=== PATIENT | male | born 1965 | race African-American/Black ===

== ENCOUNTER 2018-07-17 17:35 | Emergency (ER) | payer SELFPAY ==
[~2018-07-17] VITALS: Ht 177.8 cm; Wt 85.0 kg
[~2018-07-17 17:35] MED LIST: DILANTIN; HYDR-519 PO; OMEP20CA10 PO; PHEN100C4 PO; SUCR1TAB30 PO
[2018-07-17] MEDS ORDERED: KETOROLAC 60MG/2ML VIAL IM ONE (19:00)
[2018-07-17 22:53] VITALS: BP 132/78
== END 2018-07-17 23:00 | disposition home or self-care (01) ==
LOC: ER 17:35
DX: S50.12XA Contusion of left forearm, initial encounter (principal); S09.8XXA Other specified injuries of head, initial encounter; S80.812A Abrasion, left lower leg, initial encounter; Y08.89XA Assault by other specified means, initial encounter; Y93.89 Activity, other specified; Y92.89 Other specified places as the place of occurrence of the external cause; Y99.8 Other external cause status
CPT/HCPCS: 70450; 71045; 73090; 73590; 99284; J1885